=== PATIENT | male | born 1945 | race Caucasian/White ===

== ENCOUNTER 2019-12-21 18:04 | Emergency (ER) | payer BC ==
[~2019-12-21] VITALS: Ht 167.6 cm; Wt 68.0 kg
[2019-12-21] MEDS ORDERED: NITROGLYCERIN OINT 1 GM PACKET TP ONE (18:30)
[2019-12-21] MEDS ORDERED: HYDROCODONE/APAP 5-325MG TABLET PO ONE (18:45)
[2019-12-21] MEDS ORDERED: HYDROCODONE/APAP 5-325MG TABLET ONE (19:00)
[2019-12-21] MEDS ORDERED: APIX5TAB4 PO (19:02)
[2019-12-21] MEDS ORDERED: METH10TA4 PO (19:02)
[2019-12-21] MEDS ORDERED: CARV3.122 PO (19:02)
[2019-12-21] MEDS ORDERED: AMLO1TAB39 PO (19:02)
[2019-12-21] MEDS ORDERED: DOXYCYCLINE HYCLATE 100 MG TABLET PO ONE (20:00)
[2019-12-21] MEDS ORDERED: DOXYCYCLINE HYCLATE 100 MG TABLET ONE (20:18)
--- NOTE | 2019-12-21 20:20 | NUR ---
Patient discharged to home in stable condition. Written and verbal after care instructions given. Patient verbalizes understanding of instructions. Stressed follow up or return to ER for worsening s/s.
[2019-12-21 20:21] VITALS: BP 110/62
== END 2019-12-21 20:22 | disposition home or self-care (01) ==
LOC: ER 18:04
DX: S80.211A Abrasion, right knee, initial encounter (principal); L08.9 Local infection of the skin and subcutaneous tissue, unspecified; W01.0XXA Fall on same level from slipping, tripping and stumbling without subsequent striking against object, initial encounter; Y92.89 Other specified places as the place of occurrence of the external cause; I44.0 Atrioventricular block, first degree; M25.461 Effusion, right knee; S00.93XA Contusion of unspecified part of head, initial encounter; Z79.01 Long term (current) use of anticoagulants
CPT/HCPCS: 70450; 93005; A4663

== ENCOUNTER 2022-10-06 17:26 | Inpatient (IN) | payer BC ==
[~2022-10-06] VITALS: Ht 162.6 cm; Wt 71.0 kg
[~2022-10-06 17:26] MED LIST: AMLO1TAB39 PO; APIX5TAB4 PO; CARV3.122 PO; METH10TA4 PO
[2022-10-06] MEDS ORDERED: APIX2.5T PO (18:11)
--- NOTE | 2022-10-06 18:46 | NUR ---
Pt seen by MD for bedside eval. Safety measures in place. Will continue to monitor.
--- NOTE | 2022-10-06 18:50 | NUR ---
Received report from MARIE Tyson.
--- NOTE | 2022-10-06 19:25 | NUR ---
Patient provided with a dinner ray. aware.
[2022-10-06] MEDS ORDERED: HYDROCODONE/APAP 10-325 MG TABLET ONE (19:32)
--- NOTE | 2022-10-06 19:33 | NUR ---
[place] [address] Leone at 193. Administered to patient at 1932.
--- NOTE | 2022-10-06 19:51 | NUR ---
Manas valerio in EDM - 10/06/[address] at [address] Leone at bedside. KAY in progress.
[2022-10-06] MEDS ORDERED: HYDROCODONE/APAP 10-325 MG TABLET PO ONE (20:15)
--- NOTE | 2022-10-06 20:29 | NUR ---
Covid swab sent to lab.
--- NOTE | 2022-10-06 21:00 | NUR ---
Patient taken down for CT.
--- NOTE | 2022-10-06 21:28 | NUR ---
Pateint back from CT.
--- NOTE | 2022-10-06 22:38 | NUR ---
Called [facility] for panel call, Brent Kwong NP workers' compensation magistrate.
[2022-10-06] MEDS ORDERED: MORPHINE SULFATE 4 MG/1 ML DISP.SYRIN ONE (22:52)
[2022-10-06] MEDS ORDERED: CYCLOBENZAPRINE HCL 10 MG TABLET ONE (22:52)
[2022-10-06] MEDS ORDERED: ONDANSETRON 4 MG/2 ML VIAL IV PRN (23:00)
[2022-10-06] MEDS ORDERED: ACETAMINOPHEN 325 MG TABLET PO PRN (23:00)
[2022-10-06] MEDS ORDERED: REMEDY ESSENTIAL ZINC PASTE 113 GM TP PRN (23:00)
[2022-10-06] MEDS ORDERED: HYDROCODONE/APAP 5-325MG TABLET PO PRN (23:00)
[2022-10-06] MEDS ORDERED: MAGNESIUM HYDROXIDE 30 ML LIQUID UDC PO PRN (23:00)
[2022-10-06] MEDS ORDERED: TEMAZEPAM 15 MG CAPSULE PO PRN (23:00)
--- NOTE | 2022-10-06 23:13 | NUR ---
Patient assigned [id number]
[2022-10-07] MEDS ORDERED: CYCLOBENZAPRINE HCL 10 MG TABLET PO ONE
[2022-10-07] MEDS ORDERED: MORPHINE SULFATE 4 MG/1 ML DISP.SYRIN IM ONE
--- NOTE | 2022-10-07 00:12 | NUR ---
Report given to MARIE Raman,
--- NOTE | 2022-10-07 00:15 | NUR ---
Pt. admitted to [facility] 308, under care of Brent Kwong, SEISMOLOGY TEACHER [place] completed
[2022-10-07 01:05] VITALS: BP 143/77
--- NOTE | 2022-10-07 01:05 | NUR ---
MALA MOMIN TO 308 A/A/O XS 4
--- NOTE | 2022-10-07 01:15 | NUR ---
Patient taken to M/S Danisha boykin RN aware of patient's arrival to unit.
[2022-10-07 04:00] VITALS: BP 134/72
[2022-10-07 06:43] LABS: HEMATOCRIT 35.7 % (36.7-47.1); MEAN CORPUSCULAR HEMOGLOBIN 31.2 uug (23.8-33.4); MEAN CORPUSCULAR VOLUME 93.4 fL (73.0-96.2); PLATELET COUNT (AUTO) 133 K/uL (152-348)
[2022-10-07 07:01] LABS: CARBON DIOXIDE 26 mmol/L (21-32); CHLORIDE 107 mmol/L (98-107); GLUCOSE 116 mg/dL (74-106); MAGNESIUM 2.3 mg/dL (1.8-2.4); PHOSPHOROUS 3.4 mg/dL (2.5-4.9); POTASSIUM 3.8 mmol/L (3.5-5.1); UREA NITROGEN, BLOOD 35 mg/dL (7-18)
[2022-10-07] MEDS: PANTOPRAZOLE SODIUM 40 MG TABLET.DR PO SCH (07:08)
[2022-10-07 07:15] LABS: THYROID STIMULATING HORMONE 1.735 mIU/mL (0.358-3.740)
--- NOTE | 2022-10-07 07:30 | NUR ---
REPORT GIVEN TO MARIE SOUZA
--- NOTE | 2022-10-07 08:03 | NUR ---
PATIENT SEEN AND EXAMINED BY DR VUONG WITH NEW ORDERS AND NOTED.
[2022-10-07] MEDS: HYDROCODONE/APAP 10-325 MG TABLET PO PRN ×3 (10:48→21:16)
--- NOTE | 2022-10-07 10:48 | NUR ---
PATIENT C/O PAIN RIGHT KNEE MEDICATED WITH NORCO ORDERED MADE COMFORTABLE WILL CONTINUE TO OBSERVE.
--- NOTE | 2022-10-07 11:05 | NUR ---
DR BORRERO HERE SEEN PATIENT STATED THAT SHE WILL CALL DR MELTON FOR ORTHO CONSULT NOTIFIED HER THAT THE PHYSICAL THERAPY WAS HERE BUT WAS UNABLE TO SEE PATIENT BECAUSE THEY NEEDED THE ORTHO TO ASSIGN A WEIGHT BEARING STATUS
[2022-10-07 11:10] LABS: *CREATININE,URINE 138.6 mg/dL (30-125); *URINE TOTAL PROTEIN RANDOM 19.5 mg/dL (<150/24HR)
[2022-10-07 11:31] VITALS: BP 137/74
[2022-10-07] MEDS ORDERED: METH20TA50 PO (14:41)
[2022-10-07] MEDS ORDERED: CARV6.252 PO (14:41)
[2022-10-07] MEDS ORDERED: AMLO1TAB42 PO (14:41)
--- NOTE | 2022-10-07 15:00 | NUR ---
RESTING IN BED VOIDING USING URINAL APPETITE IS GOOD FOR MEALS MADE COMFORTABLE WILL CONTINUE TO OBSERVE.
[2022-10-07 16:58] VITALS: BP 119/64
[2022-10-07] MEDS: CARVEDILOL 6.25 MG TABLET PO SCH (17:58)
--- NOTE | 2022-10-07 22:43 | NUR ---
RN NOTE: PHARMACY called and asked that we tell Pt. to hand over his Ritalin to the pharmacy. Pt notified and he stated that he only had two pills which he brought with him to hospital and which he has since taken.
--- NOTE | 2022-10-07 22:47 | NUR ---
Pt. C/O rt knee pain and requested [place]. Medication given as per Order. Pt reassessed, and noted to be asleep at 2249.
[2022-10-08] MEDS: PANTOPRAZOLE SODIUM 40 MG TABLET.DR PO SCH (06:03)
[2022-10-08 07:00] LABS: HEMATOCRIT 38.5 % (36.7-47.1); MEAN CORPUSCULAR HEMOGLOBIN 31.1 uug (23.8-33.4); MEAN CORPUSCULAR VOLUME 93.9 fL (73.0-96.2); PLATELET COUNT (AUTO) 143 K/uL (152-348)
[2022-10-08 07:31] LABS: ALANINE AMINOTRANSFERASE 16 U/L (16-63); ALKALINE PHOSPHATASE 113 U/L (50-136); ASPARTATE AMINOTRANSFERASE < 5 U/L (15-37); BILIRUBIN,TOTAL 0.5 mg/dL (0.2-1.0); CARBON DIOXIDE 24 mmol/L (21-32); CHLORIDE 108 mmol/L (98-107); CREATINE KINASE, TOTAL 106 U/L (39-308); CREATININE 1.5 mg/dL (0.6-1.3); GLUCOSE 104 mg/dL (74-106); MAGNESIUM 2.3 mg/dL (1.8-2.4); PHOSPHOROUS 3.3 mg/dL (2.5-4.9); POTASSIUM 4.3 mmol/L (3.5-5.1); UREA NITROGEN, BLOOD 35 mg/dL (7-18)
--- NOTE | 2022-10-08 07:43 | NUR ---
RN NOTE - Pt. care and report given to MARIE Velazco at [phone]
[2022-10-08] MEDS: HYDROCODONE/APAP 10-325 MG TABLET PO PRN (08:34)
--- NOTE | 2022-10-08 08:34 | NUR ---
PATIENT C/O RIGHT KNEE PAIN MEDICATED WITH NORCO ORDERED MADE COMFORTABLE WILL OBSERVE.
[2022-10-08] MEDS ORDERED: AMLODIPINE 10 MG TABLET PO SCH ×2 (09:00→21:00)
[2022-10-08] MEDS ORDERED: LOSARTAN POTASSIUM 50 MG TABLET PO SCH ×2 (09:00)
[2022-10-08] MEDS ORDERED: OLMESARTAN MED PO SCH (09:00)
[2022-10-08] MEDS ORDERED: [UNRECOGNIZED DRUG - OTHER] PO SCH (09:00)
[2022-10-08] MEDS ORDERED: AMLODIPINE BES PO SCH (09:00)
[2022-10-08] MEDS ORDERED: METHYLPHENIDATE HCL 5 MG TABLET PO SCH (09:00)
[2022-10-08] MEDS: CARVEDILOL 6.25 MG TABLET PO SCH ×2 (09:42→16:42)
[2022-10-08 09:43] VITALS: BP 144/82
--- NOTE | 2022-10-08 10:00 | NUR ---
SPOKE WITH PATIENT REGARDING BRINGING IN HIS RITALIN AND HE STATED THAT HE LIVES ALONE AND HAS NO ONE TO BRING IT IN TO THE HOSPITAL PHARMACY NOTIFIED.
[2022-10-08 11:52] VITALS: BP 150/72
--- NOTE | 2022-10-08 13:11 | NUR ---
DR EISENBERG HERE SEEN PATIENT AND AWARE THAT DR MELTON HAS NOT SEEN PATIENT YET AND DR BORRERO STATED THAT SHE CALLED HIM ALREADY AND HE STATED OKAY WILL SEND DR MELTON ANOTHER MESSAGE FOR ORTHO CONSULT.
[2022-10-08] MEDS: MODAFINIL 100 MG TABLET PO SCH (13:44)
[2022-10-08 15:48] VITALS: BP 166/70
--- NOTE | 2022-10-08 16:25 | NUR ---
BLOOD PRESSURE AT THIS TIME IS 166/85 HR IS 61 DUE COREG 6.25 GIVEN AND WILL OBSERVE
--- NOTE | 2022-10-08 18:05 | NUR ---
BLOOD PRESSURE RECHECKED AT THIS TIME AND ITS 164/86 HR IS [address] EISENBERG WITH NO NEW ORDERS AT THIS TIME.
[2022-10-08] MEDS: hydrALAZINE HCL 25 MG TABLET PO PRN (18:30)
--- NOTE | 2022-10-08 18:31 | NUR ---
HYDRALAZINE 25 MG GIVEN ORDERED WILL CONTINUE TO OBSERVE.
--- NOTE | 2022-10-08 19:07 | NUR ---
DR TREJO HERE WITH NEW ORDERS STATED TO KEEP PATIENT NPO AFTER MIDNIGHT AND TO START IVF AT THAT TIME PATIENT HAS NO IV SITE HAD REFUSED INSERTION ON ADMISSION DR EISENBERG AWARE AND STATED TO ATTEMPT TO INSERT A LINE IF PATIENT REFUSES THEN NOTHING WE CAN DO.
[2022-10-08] MEDS ORDERED: AMLODIPINE 5 MG TABLET PO SCH (21:00)
[2022-10-08 21:43] VITALS: BP 150/81
[2022-10-09] MEDS ORDERED: IV D5 1/2 NS 1000 ML 1,000 ML IV PRN (00:01)
--- NOTE | 2022-10-09 03:50 | NUR ---
AAOx4 Admitted for a non displaced fracture of the right patella. Right knee swollen. All needs attended. Denies any pain nor any discomfort. To be seen by Dr Lott this am. NPO after MN. IV D51/2 NS @ 6o cc/hr infusing well via left hand #22 g. Voiding well in the urinal. Fall precautions maintained. Compliant with meds. Will monitor patient.
[2022-10-09 06:26] VITALS: BP 146/76
[2022-10-09] MEDS: PANTOPRAZOLE SODIUM 40 MG TABLET.DR PO SCH (06:26)
[2022-10-09 06:53] LABS: HEMATOCRIT 38.8 % (36.7-47.1); MEAN CORPUSCULAR HEMOGLOBIN 30.8 uug (23.8-33.4); MEAN CORPUSCULAR VOLUME 92.6 fL (73.0-96.2); PLATELET COUNT (AUTO) 150 K/uL (152-348)
[2022-10-09 07:12] LABS: CHLORIDE 107 mmol/L (98-107); CREATININE 1.3 mg/dL (0.6-1.3); GLUCOSE 104 mg/dL (74-106); PHOSPHOROUS 2.8 mg/dL (2.5-4.9); POTASSIUM 3.9 mmol/L (3.5-5.1); UREA NITROGEN, BLOOD 27 mg/dL (7-18)
[2022-10-09 08:00] VITALS: BP 147/86
--- NOTE | 2022-10-09 08:00 | NUR ---
Received patient lying in bed awake, alert and oriented. With IVF D51/2 NS @ 60cc/hr on NPO instructed until seen by Dr. Lott No complain, no signs of distress, No SOB. Vital signs taken and recorded. Needs attended
[2022-10-09 08:51] LABS: CARBON DIOXIDE 23 mmol/L (21-32); MAGNESIUM 2.4 mg/dL (1.8-2.4)
[2022-10-09] MEDS: MODAFINIL 100 MG TABLET PO SCH (09:29)
[2022-10-09] MEDS: CARVEDILOL 6.25 MG TABLET PO SCH ×2 (09:30→16:55)
[2022-10-09] MEDS ORDERED: LOSARTAN POTASSIUM 50 MG TABLET PO SCH (10:00)
--- NOTE | 2022-10-09 10:06 | NUR ---
Seen and examined by Dr. Lott, non-surgical, used knee immobilizer, WBAT x 6 weeks and remove for gentle ROM daily
[2022-10-09] MEDS ORDERED: LOSARTAN POTASSIUM 50 MG TABLET PO ONE (10:15)
[2022-10-09 12:00] VITALS: BP 128/83
[2022-10-09 13:06] LABS: A/G RATIO 1.1 (0.7-1.7); ALBUMIN 3.4 g/dL (2.9-4.4); ALPHA-1-GLOBULIN 0.2 g/dL (0.0-0.4); ALPHA-2-GLOBULIN 0.7 g/dL (0.4-1.0); M-SPIKE Not Observed g/dL (Not Observed)
[2022-10-09 16:00] VITALS: BP 143/76
[2022-10-09 20:00] VITALS: BP 165/77
[2022-10-09] MEDS ORDERED: AMLODIPINE 5 MG TABLET PO SCH (21:00)
[2022-10-09 21:51] LABS: *BILIRUBIN,URIN NEGATIVE (NEGATIVE); *BLOOD, URINE NEGATIVE (NEGATIVE); *CLARITY,URINE CLEAR (CLEAR); *COLOR,URINE YELLOW (YELLOW); *KETONES,URINE NEGATIVE (NEGATIVE); *UROBILINOGEN,URINE 0.2 E.U./dl (NORMAL); LEUKOCYTE ESTERASE ,URINE NEGATIVE (NEGATIVE); NITRITE, URINE NEGATIVE (NEGATIVE); PH,URINE 5.5 (5.0-8.0); UGLUCOSE NEGATIVE (NEGATIVE)
--- NOTE | 2022-10-10 00:10 | NUR ---
Pt walked around the hallways with knee immobilizer. Steady in gait. No pain or discomfort reported. Fall precautions observed.
[2022-10-10 04:00] VITALS: BP 118/75
[2022-10-10 05:50] VITALS: BP 166/85
[2022-10-10] MEDS: hydrALAZINE HCL 25 MG TABLET PO PRN (05:57)
[2022-10-10] MEDS: PANTOPRAZOLE SODIUM 40 MG TABLET.DR PO SCH (06:08)
[2022-10-10] MEDS ORDERED: LOSARTAN POTASSIUM 50 MG TABLET PO SCH (09:00)
[2022-10-10 12:32] VITALS: BP 166/80
[2022-10-10] MEDS: MODAFINIL 100 MG TABLET PO SCH (12:32)
[2022-10-10] MEDS: CARVEDILOL 6.25 MG TABLET PO SCH (12:32)
--- NOTE | 2022-10-10 16:56 | NUR ---
DISCHARGE PLANNIN) Going home - order on the system. 2) ID band removed. 3) Iv access removed, no bleeding, dressing intact. 4) Discharge pack signed, dated and copy provided to patient. 4) Going home in own booked [employer]. 5) Clinically stable on discharge.
== END 2022-10-10 16:15 | disposition home health service (06) | DRG 562 ==
LOC: ER 17:28 → MEDSURG3 10-07 00:15
PROVIDERS: ADMIT Nurse Practitioner Acute Care; ATTEND Student in an Organized Health Care Education/Training Program
PROC: 2W3NX1Z Immobilization of Right Upper Leg using Splint (ICD-10-PCS; principal; 2022-10-09)
DX: S82.091A Other fracture of right patella, initial encounter for closed fracture (principal); N17.0 Acute kidney failure with tubular necrosis; D68.59 Other primary thrombophilia; M25.461 Effusion, right knee; I48.0 Paroxysmal atrial fibrillation; I13.10 Hypertensive heart and chronic kidney disease without heart failure, with stage 1 through stage 4 chronic kidney disease, or unspecified chronic kidney disease; N18.9 Chronic kidney disease, unspecified; W01.0XXA Fall on same level from slipping, tripping and stumbling without subsequent striking against object, initial encounter; Y92.480 Sidewalk as the place of occurrence of the external cause; K21.9 Gastro-esophageal reflux disease without esophagitis; I35.8 Other nonrheumatic aortic valve disorders; I25.10 Atherosclerotic heart disease of native coronary artery without angina pectoris; E78.5 Hyperlipidemia, unspecified; Z90.5 Acquired absence of kidney; F98.8 Other specified behavioral and emotional disorders with onset usually occurring in childhood and adolescence; Z79.01 Long term (current) use of anticoagulants; Z79.899 Other long term (current) drug therapy; Z88.0 Allergy status to penicillin; Z87.891 Personal history of nicotine dependence; Z85.528 Personal history of other malignant neoplasm of kidney; Z96.641 Presence of right artificial hip joint
CPT/HCPCS: 36415; 70450; 71045; 72170; 72192; 83735; 83970; 84100; 84155; 84165; 84300; 84443; 85025; 85610; 93307; A4663; G0378; J2270